=== PATIENT | female | born 1965 | race Two or more races ===

== ENCOUNTER 2020-11-21 18:51 | Emergency (ER) | payer MEDICAID, OTHER ==
[~2020-11-21] VITALS: Ht 167.6 cm; Wt 81.6 kg
[2020-11-21 20:06] LABS: Basophils # (auto) 0 10 ^3/uL (0-0.2); Basophils % (auto) 0.3 % (0.0-2.0); Eosinophils # (auto) 0.1 10 ^3/uL (0-0.8); Hematocrit 43.9 % (36.0-46.0); Hemoglobin 15.1 g/dL (12.2-16.2); Lymphocytes # (auto) 2.1 10 ^3/uL (0.4-5.4); Lymphocytes % (auto) 23.1 % (10.0-50.0); Mean Corpuscular Hemoglobin 28.9 pg (28.0-32.0); Mean Corpuscular Hgb Conc. 34.4 g/dL (32.0-36.0); Monocytes # (auto) 0.5 10 ^3/uL (0-1.3); Neutrophils # (auto) 6.3 10 ^3/uL (1.6-8.6); Neutrophils % (auto) 69.6 % (37.0-80.0); Nucleated Red Blood Cells % 0.2 %; Red Blood Cells 5.22 10^6/uL (4.0-5.20); Red Cell Distribution Width 14.5 % (11.8-14.3)
[2020-11-21 20:24] LABS: Alanine Aminotransferase 26 U/L (13-56); Albumin 3.8 g/dL (3.4-5.0); Anion Gap 6 (5-15); Aspartate Aminotransferase 17 U/L (15-37); BUN/Creatinine Ratio 17.9; Blood Urea Nitrogen 15 mg/dL (7-18); Calcium 8.9 mg/dL (8.5-10.1); Carbon Dioxide 26 mmol/L (21-32); Chloride 111 mmol/L (98-107); GFR African American 90 mL/min; GFR Non-African American 75 mL/min; Glucose 94 mg/dL (74-106); Magnesium 2.2 mg/dL (1.6-2.6); Potassium 3.5 mmol/L (3.5-5.1); Sodium 143 mmol/L (136-145)
[2020-11-21 20:29] LABS: Alkaline Phosphatase 115 U/L (45-117); Bilirubin, Total 0.9 mg/dL (0.2-1.0); Total Protein 8.4 g/dL (6.4-8.2)
[2020-11-21] MEDS ORDERED: LABETALOL HCL 5 MG/ML 4ML SYRINGE IV ONE (21:00)
[2020-11-21] MEDS ORDERED: LABETALOL HCL 200 MG TAB PO ONE (22:30)
[2020-11-22 02:49] VITALS: BP 118/81
== END 2020-11-22 02:55 | disposition home or self-care (01) ==
LOC: ER 18:51 → EDBD 18:51 → ER 11-22 02:55
DX: H81.399 Other peripheral vertigo, unspecified ear (principal); Z20.822 Contact with and (suspected) exposure to COVID-19
CPT/HCPCS: 36415; 70450; 80053; 83735; 84484; 85025; 87426; 93005; 96374; 99285; J3490

== ENCOUNTER 2022-02-10 15:46 | Emergency (ER) | payer MEDICAID ==
[~2022-02-10] VITALS: Ht 167.6 cm; Wt 78.3 kg
[2022-02-10 16:21] VITALS: BP 146/87
[2022-02-10 18:59] LABS: Albumin 4.3 g/dL (3.4-5.0); Calcium 9.9 mg/dL (8.5-10.1); Potassium 3.7 mmol/L (3.5-5.1)
[2022-02-10 19:03] LABS: BUN/Creatinine Ratio 10.8; Bilirubin, Total 1.8 mg/dL (0.2-1.0)
[2022-02-10 19:56] LABS: Basophils # (auto) 0 10 ^3/uL (0-0.2); Basophils % (auto) 0.3 % (0.0-2.0); Eosinophils # (auto) 0.1 10 ^3/uL (0-0.8); Eosinophils % (auto) 0.8 % (0.0-7.0); Hematocrit 46.3 % (36.0-46.0); Hemoglobin 15.1 g/dL (12.2-16.2); Lymphocytes % (auto) 20.5 % (10.0-50.0); Mean Corpuscular Hgb Conc. 32.7 g/dL (32.0-36.0); Mean Corpuscular Volume 82.6 fL (80.0-100.0); Monocytes # (auto) 0.5 10 ^3/uL (0-1.3); Monocytes % (auto) 5.3 % (0.0-12.0); Neutrophils # (auto) 7.1 10 ^3/uL (1.6-8.6); Neutrophils % (auto) 73.1 % (37.0-80.0); Red Cell Distribution Width 14.8 % (11.8-14.3); White Blood Cell 9.7 10^3/uL (4.4-10.8)
[2022-02-10] MEDS ORDERED: IBUPROFEN 600 MG TAB PO ONE (23:00)
[2022-02-10] MEDS ORDERED: cloNIDine HCL 0.1 MG TAB PO ONE (23:00)
== END 2022-02-10 16:00 | disposition left against medical advice (07) ==
LOC: ER 15:46
DX: I10 Essential (primary) hypertension (principal); R07.89 Other chest pain; M79.10 Myalgia, unspecified site; Z53.29 Procedure and treatment not carried out because of patient's decision for other reasons
CPT/HCPCS: 36415; 80053; 84484; 85025; 93005

== ENCOUNTER 2024-04-23 15:33 | Inpatient (IN) | payer MEDICAID ==
[~2024-04-23] VITALS: Ht 167.6 cm; Wt 82.3 kg
[2024-04-23 16:04] LABS: Basophils # (auto) 0 10 ^3/uL (0-0.2); Basophils % (auto) 0.2 % (0.0-2.0); Eosinophils # (auto) 0.1 10 ^3/uL (0-0.8); Eosinophils % (auto) 1.3 % (0.0-7.0); Hematocrit 43.9 % (36.0-46.0); Hemoglobin 15.5 g/dL (12.2-16.2); Lymphocytes % (auto) 28.2 % (10.0-50.0); Mean Corpuscular Hemoglobin 29.6 pg (28.0-32.0); Mean Corpuscular Hgb Conc. 35.2 g/dL (32.0-36.0); Mean Corpuscular Volume 84.1 fL (80.0-100.0); Monocytes # (auto) 0.4 10 ^3/uL (0-1.3); Monocytes % (auto) 6.2 % (0.0-12.0); Neutrophils # (auto) 4.5 10 ^3/uL (1.6-8.6); Neutrophils % (auto) 64.1 % (37.0-80.0); Nucleated Red Blood Cells % 0.1 %; Platelet Count (auto) 196 10^3/uL (140-450); Red Blood Cells 5.22 10^6/uL (4.0-5.20); Red Cell Distribution Width 13.9 % (11.8-14.3)
[2024-04-23 16:17] LABS: Alanine Aminotransferase 15 U/L (7-40); Albumin 4.9 g/dL (3.2-4.8); Alkaline Phosphatase 99 U/L (46-116); Anion Gap 7 (5-15); Aspartate Aminotransferase 13 U/L (13-40); BUN/Creatinine Ratio 12.3 (10.0-20.0); Bilirubin, Total 1.7 mg/dL (0.2-1.0); Blood Urea Nitrogen 13 mg/dL (9-23); Calcium 10.3 mg/dL (8.7-10.4); Carbon Dioxide 24 mmol/L (20-31); Chloride 109 mmol/L (98-107); Glucose 101 mg/dL (74-106); Potassium 3.8 mmol/L (3.5-5.1); Sodium 140 mmol/L (136-145); Total Protein 8.1 g/dL (5.7-8.2)
[2024-04-23 16:20] LABS: INR 1.03 (0.9-1.15); Partial Thromboplastin Time 27.9 SEC (24.5-34.5); Prothrombin Time 10.9 sec (9.3-11.8)
--- NOTE | 2024-04-23 18:17 | DVH ---
EXAM: CT HEAD WITHOUT CONTRAST INDICATION: visual disturbance TECHNIQUE: CT of the head without intravenous contrast. Radiation Dose Information: CT Dose: CTDI volume is 25 mGy. Dose-length product is 259 mGy*cm The dose indicators for CT are the volume Computed Tomography (CT) Dose Index (CTDIvol) and the Dose Length Product (DLP), and are measured in units of mGy and mGy-cm, respectively. These indicators are not patient dose, but values generated from the CT scanner acquisition factors. The report includes radiation exposure data for exposures received during this examination. COMPARISON: HEAD WITHOUT CONTRAST on DOS: 11/21/20 FINDINGS: There is no evidence of acute intracranial hemorrhage, extra-axial collection, mass effect, midline s hift, herniation or hydrocephalus. The ventricles, sulci and cisterns are age appropriate. The reina-white differentiation is intact. Patchy periventricular and subcortical white matter hypoattenuation is nonspecific but may be related to small vessel ischemic disease. The visualized paranasal sinuses and mastoid air cells are clear. The surrounding soft tissues and osseous structures are unremarkable. IMPRESSION: No acute intracranial abnormality.
--- NOTE | 2024-04-23 18:27 | ED.PDOC ---
Eye-HPI HPI Comments 59 y.o female with PMH of HTN, arrhythmias, and hyperlipidemia, presents to the ED for an evaluation of vision change. Patient reports over the last several days she has had more frequent episodes of intermittent palpitations. She is currently being followed at [place] by a cooling tower technician and entry analyst, however does not have a definitive diagnosis. She states today she was out running errands around 1500 when she noticed a "vertical black string/line" appear in her right eye visual field, described as the appearance of strands of hair obscuring her vision. Patient drove to the ED but upon arrival her symptoms subsided. Patient states while awaiting in the lobby, she had intermittent episodes where that "black strand" appears with no specific precipitating factors. Currently she states her vision is normal. She is cu rrently experiencing palpitations, however denies chest pain. Patient denies any eye pain, discharge, headaches, slurred speech, facial droops, numbness, or eye trauma. Chief Complaint: Eye Problem Time Seen by MD: 18:04 Primary Care Provider: DANNIE Vivas Notes: Nurses Notes, Medications, Allergies Allergies: Coded Allergies: NO KNOWN ALLERGIES (Unverified , 11/21/20) Information Source: Patient Mode of Arrival: Ambulatory Timing: Hours Duration: Intermittent Eye Location: Right Onset: Spontaneous History of: None Associated signs and symptoms: Other Past Medical History PAST MEDICAL HISTORY: High Lipids, HTN Past Medical History (Other): Ascending aortic aneurysm, arrhythmia Surgical History: Denies all surgeries HARBOR PILOT History: No Pertinent HARBOR PILOT History Family History Family History: Reviewed,noncontributory to illness, Family hx of stroke Social History Smoker: Non-Smoker Alcohol: Denies ETOH Use Drugs: Denies Drug Use Lives In: Home Constitutional: denies: chills, diaphoresis, fatigue, fever, malaise, sweats, weakness, others EENTM: reports: others (right eye vision change: black strands ); denies: blurred vision, double vision, ear bleeding, ear discharge, ear drainage, ear pain, ear ringing, eye pain, eye redness, hearing loss, mouth pain, mouth swelling, nasal discharge, nose bleeding, nose congestion, nose pain, photophobia, tearing, throat pain, throat swelling, voice changes Respiratory: denies: cough, hemoptysis, orthopnea, SOB at rest, shortness of breath, SOB with excertion, stridor, wheezing, others Cardiovascular: denies: chest pain, dizzy spells, diaphoresis, Dyspnea on exertion, edema, irregular heart beat, left arm pain, lightheadedness, palpitations, PND, syncope, others Gastrointestinal: denies: abdomen distended, abdominal pain, blood streaked bowels, constipated, diarrhea, dysphagia, difficulty swallowing, hematemesis, melena, nausea, poor appetite, poor fluid intake, rectal bleeding, rectal pain, vomiting, others Genitourinary: denies: abnormal vagina bleeding, burning, dyspareunia, dysuria, flank pain, frequency, hematuria, incontinence, pain, , vagina discharge, urgency, others Neurological: denies: dizziness, fainting, headache, left sided numbness, left sided weakness, numbness, paresthesia, pre-existing deficit, right sided numbness, right sided weakness, seizure, speech problems, tingling, tremors, weakness, others Musculoskeletal: denies: back pain, gout, joint pain, joint swelling, muscle pain, muscle stiffness, neck pain, others Integumetry: denies: bruises, change in color, change in hair/nails, dryness, laceration, lesions, lumps, rash, wounds, others Allergic/Immunocompromised: denies: Difficulty Healing, Frequent Infections, Hives, Itching, others Hematologic/Lymphatic: denies: anemia, blood clots, easy bleeding, easy bruising, swollen glands, others Endocrine: denies: excessive hunger, excessive sweating, excessive thirst, excessive urination, flushing, intolerance to cold, intolerance to heat, unexplained weight gain, unexplained weight loss, others Psychiatric: denies: anxiety, bipolar disorder, depression, hopeless, panic disorder, schizophrenia, sleepless, suicidal, others All Other Systems: Reviewed and Negative Physical Exam General Appearance: No Apparent Distress HEENT: Normal ENT Inspection, PERRL/EOMI Neck: Full Range of Motion, Normal Inspection Respiratory: Lungs Clear, No Accessory Muscle Use, No Respiratory Distress, Normal Breath Sounds Cardiovascular: Irregular, No Edema, No JVD Breast Exam: Deferred Gastrointestinal: Non Tender, Soft Genitalia: Deferred Pelvic: Deferred Rectal: Deferred Extremities: Normal inspection, Normal range of motion, Non-tender, No pedal edema Neurologic: Alert, cribber II-XII nml as Tested, No Motor Deficits, Normal Affect, Normal Mood, No Sensory Deficits Cerebellar Function: NOT DONE Reflexes: NOT DONE Skin: Dry, Normal Color, Warm Lymphatic: NOT DONE Was a procedure done? Was a procedure done?: No EKG EKG : Comments Sinus rhythm, rate 58, normal intervals, normal axis, normal QRS complex, nonspecific T changes. No prior EKG available for comparison. EENT DIFF Eye: Retinal Vein Occlusion, Other (We will detachment, other retinopathy, ocular migraine, CVA, TIA, among others) X-Ray, Labs, Meds, VS Vital Signs Date Time Temp Pulse Resp B/P (MAP) Pulse Ox O2 Delivery O2 Flow Rate FiO2 04/23/24 19:54 Room Air* 0 21 04/23/24 19:09 16 97 Room Air* 0 21 04/23/24 19:07 97.9 66 16 139/69 (92) 97 97.9 04/23/24 15:52 98.3 65 18 154/96 (115) 98 04/23/24 15:40 58 Lab Test 04/23/24 15:48 Range/Units White Blood Count 7.0 4.4-10.8 10^3/uL Red Blood Count 5.22 H 4.0-5.20 10^6/uL Hemoglobin 15.5 12.2-16.2 g/dL Hematocrit 43.9 36.0-46.0 % Mean Corpuscular Volume 84.1 80.0-100.0 fL Mean Corpuscular Hemoglobin 29.6 28.0-32.0 pg Mean Corpuscular Hemoglobin Concent 35.2 32.0-36.0 g/dL Red Cell Distribution Width 13.9 11.8-14.3 % Platelet Count 196 140-450 10^3/uL Mean Platelet Volume 9.1 6.9-10.8 fL Neutrophils (%) (Auto) 64.1 37.0-80.0 % Lymphocytes (%) (Auto) 28.2 10.0-50.0 % Monocytes (%) (Auto) 6.2 0.0-12.0 % Eosinophils (%) (Auto) 1.3 0.0-7.0 % Basophils (%) (Auto) 0.2 0.0-2.0 % Neutrophils # (Auto) 4.5 1.6-8.6 10 ^3/uL Lymphocytes # (Auto) 2.0 0.4-5.4 10 ^3/uL Monocytes # (Auto) 0.4 0-1.3 10 ^3/uL Eosinophils # (Auto) 0.1 0-0.8 10 ^3/uL Basophils # (Auto) 0 0-0.2 10 ^3/uL Nucleated Red Blood Cells 0.1 % Prothrombin Time 10.9 9.3-11.8 sec Prothrombin Time INR 1.03 0.9-1.15 Activated Partial Thromboplast Time 27.9 24.5-34.5 SEC Sodium Level 140 136-145 mmol/L Potassium Level 3.8 3.5-5.1 mmol/L Chloride Level 109 H 98-107 mmol/L Carbon Dioxide Level 24 20-31 mmol/L Anion Gap 7 5-15 Blood Urea Nitrogen 13 9-23 mg/dL Creatinine 1.06 H 0.550-1.02 mg/dL Glomerular Filtration Rate Calc 60 >90 mL/min BUN/Creatinine Ratio 12.3 10.0-20.0 Serum Glucose 101 74-106 mg/dL Calcium Level 10.3 8.7-10.4 mg/dL Total Bilirubin 1.7 H 0.2-1.0 mg/dL Aspartate Amino Transferase (AST) 13 13-40 U/L Alanine Aminotransferase (ALT) 15 7-40 U/L Alkaline Phosphatase 99 46-116 U/L Troponin I High Sensitivity < 3 L </=34 ng/L Total Protein 8.1 5.7-8.2 g/dL Albumin 4.9 H 3.2-4.8 g/dL Current Medications Medications (Trade) Dose Ordered Sig/Ekta Route Start Time Stop Time Status Last Admin Docusate Sodium (Colace Capsule) 100 mg ONCE ONCE PO 04/23/24 21:30 04/23/24 21:31 DC 04/23/24 21:58 EXAM: CT HEAD WITHOUT CONTRAST INDICATION: visual disturbance TECHNIQUE: CT of the head without intravenous contrast. Radiation Dose Information: CT Dose: CTDI volume is 25 mGy. Dose-length product is 259 mGy*cm The dose indicators for CT are the volume Computed Tomography (CT) Dose Index (CTDIvol) and the Dose Length Product (DLP), and are measured in units of mGy and mGy-cm, respectively. These indicators are not patient dose, but values generated from the CT scanner acquisition factors. The report includes radiation exposure data for exposures received during this examination. COMPARISON: HEAD WITHOUT CONTRAST on DOS: 11/21/20 FINDINGS: There is no evidence of acute intracranial hemorrhage, extra-axial collection, mass effect, midline shift, herniation or hydrocephalus. The ventricles, sulci and cisterns are age appropriate. The reina-white differentiation is intact. Patchy periventricular and subcortical white matter hypoattenuation is nonspecific but may be related to small vessel ischemic disease. The visualized paranasal sinuses and mastoid air cells are clear. The surrounding soft tissues and osseous structures are unremarkable. IMPRESSION: No acute intracranial abnormality. X-Ray, Labs, Meds, VS Comment 59-year-old female with a history of hypertension, hyperlipidemia and ascending aortic aneurysm, complaining of transient right eye vision changes. Vitals remarkable for heart rate 58, BP 154/96 Exam remarkable for irregular heart rhythm Head CT unremarkable CBC, CMP, troponin and coag panel unremarkable for any abnormality of acute significance On re-evaluation, patient was not having any vision changes. She did experience tachycardia up to 118, then bradycardia down to 58 while at rest. She did not appear anxious or uncomfortable during the episodes of tachycardia or bradycardia. Head CT is negative, however I am concerned for possible episodes of bradycardia causing transient brain ischemia resulting in vision changes. Plan is to admit the patient for brain MRI and Neurology/cardiology evaluation. Time of 1ST Reevaluation: 18:19 Reevaluation 1ST: Unchanged Time of 2ND Reevaluation: 19:04 Reevaluation 2ND: Unchanged Patient Education/Counseling: Diagnosis, Treatment, Prognosis Family Education/Counseling: No Family Present Departure 1 Departure Time of Disposition: 19:05 Impression: Primary Impression: Visual disturbance Additional Impressions: Transient ischemic attack Palpitations Disposition: ADMITTED INPATIENT Admit to: Tele Condition: Guarded Critical Care Note Critical Care Time?: No Stability Stability form required: No I personally scribed for KIANA HALL MD ([facility]) on 04/23/24 at 18:27. Electronically submitted by Марина Boyce ([facility]). I personally scribed for KIANA HALL MD ([facility]) on 04/23/24 at 18:56. Electronically submitted by Марина Boyce ([facility]). KIANA HALL MD Apr 23, 2024 18:27
[2024-04-23 19:09] VITALS: RESP 16; O2SAT 97
[2024-04-23] MEDS: DOCUSATE SOD 100 MG CAP PO ONE (21:58)
[2024-04-23] MEDS ORDERED: DOCUSATE SOD 100 MG CAP PO PRN (22:45)
[2024-04-23] MEDS ORDERED: ONDANSETRON HCL 4 MG/2 ML VIAL IV PRN (22:45)
[2024-04-23] MEDS ORDERED: hydrALAZINE HCL 20 MG/ML VL IV PRN (22:45)
[2024-04-23] MEDS ORDERED: ACETAMINOPHEN 325 MG TAB PO PRN (22:45)
[2024-04-23] MEDS ORDERED: HYDROcodone-ACET 5/325MG TAB PO PRN (22:45)
--- NOTE | 2024-04-23 23:19 | DVHHP2 ---
History of Present Illness Reason for Visit: Palpitations History of Present Illness The patient is a 59 years old female past medical history of hyperlipidemia, hypertension, ascending aortic aneurysm, and arrhythmia who presented to [facility] ED with complaint of right visual disturbance. Patient reports over the last several days she has had more frequent episodes of intermittent palpitations. She is currently being followed at [place] by a quality nurse and radio officer, however does not have a definitive diagnosis. She states today she was out running errands around 1500 when she noticed a "vertical black string/line" appear in her right eye visual field, described as the appearance of strands of hair obscuring her vision. Patient was seen and evaluated in the ED, laboratory data shows WBC 7.0, platelets 196, sodium 140, potassium 3.8, BUN 13, creatinine 1.06, total bilirubin 1.7, glucose 101, troponin 3, blood pressure 139/69, pulse 66, temperature 97.9 F, O2 saturation 97% room air. Head CT showed no acute intracranial abnormality. Please see medication orders section in the computer. On my assessment, patient denied chest pain, no headache, no dizziness, no diaphoresis, no palpitations at this moment, no shortness of breath, no nausea, no vomiting, no fever, no chills. Patient was admitted for further evaluation and medical management. Past Medical History High Lipids, HTN, Ascending aortic aneurysm, arrhythmia Past Surgical History Denies all surgeries Family History Reviewed, noncontributory to the management of this case. Past Social History The patient lives at home, denies smoking, alcohol or illicit drugs abuse. Review of Systems Constitutional: No: Fever, Chills, Sweats, Weakness, Malaise, Other Eyes: Vision change (Right eye); No: Pain, Conjunctivae inflammation, Eyelid inflammation, Other, Redness ENT: No: Ear pain, Ear discharge, Nose pain, Nose discharge, Nose congestion, Mouth pain, Mouth swelling, Throat pain, Throat swelling, Other Respiratory: No: Cough, Dry, Shortness of breath, SOB with excertion, Wheezing, Hemoptysis, Pleuritic Pain, Sputum, Wheezing, Other Cardiovascular: Palpitations; No: Chest Pain, Orthopnea, Paroxysmal Noc. Dyspnea, Edema, Lt Headedness, Other Gastrointestinal: No: Nausea, Vomiting, Abdominal Pain, Diarrhea, Constipation, Melena, Hematochezia, Other Genitourinary: No Dysuria, No Frequency, No Incontinence, No Hematuria, No Retention, No Other Musculoskeletal: No: other, neck pain, shoulder pain, arm pain, back pain, hand pain, leg pain, foot pain Skin: No: Rash, Lesions, Jaundice, Bruising, Other Neurological: No: Weakness, Numbness, Incoordination, Change in speech, Confusion, Seizures, Other Allergies: Coded Allergies: NO KNOWN ALLERGIES (Unverified , 11/21/20) Medications Current Medications Medications Dose Ordered Sig/Ekta Route Start Time Stop Time Status Last Admin Dose Admin Atorvastatin Calcium 20 mg HS PO 04/24/24 22:00 Hydralazine HCl 10 mg Q6HP PRN IV 04/23/24 22:45 Sodium Chloride 10 ml Q8HR IV 04/24/24 06:00 Acetaminophen/ Hydrocodone Bitart 1 tab Q4HP PRN PO 04/23/24 22:45 Ondansetron HCl 4 mg Q4HP PRN IV 04/23/24 22:45 Docusate Sodium 100 mg BIDPRN PRN PO 04/23/24 22:45 Acetaminophen 650 mg Q6HP PRN PO 04/23/24 22:45 Exam Vital Signs Vital Signs Date Time Temp Pulse Resp B/P (MAP) Pulse Ox O2 Delivery O2 Flow Rate FiO2 04/23/24 19:54 Room Air* 0 21 04/23/24 19:09 16 97 04/23/24 19:07 97.9 66 139/69 (92) 97.9 General Appearance: Alert, Oriented X3, Cooperative, No acute distress HEENT: Atraumatic, PERRLA, EOMI, Mucous membr. moist/pink Respiratory: Clear to auscultation, Normal air movement Cardiovascular: Regular rate, Normal S1, Normal S2, No murmurs Abdominal: Normal bowel sounds, Soft, No tenderness, No hepatospenomegaly, No masses Extremities: No clubbing, No cyanosis, No edema, Normal pulses, No tenderness/swelling Skin: No rashes, No breakdown, No significant lesion Neuro: Normal gait, Normal speech, Strength at 5/5 X4 ext, Normal tone, Sensation intact, Cranial nerves 3-12 NL, Reflexes 2+ Psych/Mental Status: Mental status NL, Mood NL Labs/Xrays Labs Test 04/23/24 15:48 Range/Units White Blood Count 7.0 4.4-10.8 10^3/uL Red Blood Count 5.22 H 4.0-5.20 10^6/uL Hemoglobin 15.5 12.2-16.2 g/dL Hematocrit 43.9 36.0-46.0 % Mean Corpuscular Volume 84.1 80.0-100.0 fL Mean Corpuscular Hemoglobin 29.6 28.0-32.0 pg Mean Corpuscular Hemoglobin Concent 35.2 32.0-36.0 g/dL Red Cell Distribution Width 13.9 11.8-14.3 % Platelet Count 196 140-450 10^3/uL Mean Platelet Volume 9.1 6.9-10.8 fL Neutrophils (%) (Auto) 64.1 37.0-80.0 % Lymphocytes (%) (Auto) 28.2 10.0-50.0 % Monocytes (%) (Auto) 6.2 0.0-12.0 % Eosinophils (%) (Auto) 1.3 0.0-7.0 % Basophils (%) (Auto) 0.2 0.0-2.0 % Neutrophils # (Auto) 4.5 1.6-8.6 10 ^3/uL Lymphocytes # (Auto) 2.0 0.4-5.4 10 ^3/uL Monocytes # (Auto) 0.4 0-1.3 10 ^3/uL Eosinophils # (Auto) 0.1 0-0.8 10 ^3/uL Basophils # (Auto) 0 0-0.2 10 ^3/uL Nucleated Red Blood Cells 0.1 % Prothrombin Time 10.9 9.3-11.8 sec Prothrombin Time INR 1.03 0.9-1.15 Activated Partial Thromboplast Time 27.9 24.5-34.5 SEC Sodium Level 140 136-145 mmol/L Potassium Level 3.8 3.5-5.1 mmol/L Chloride Level 109 H 98-107 mmol/L Carbon Dioxide Level 24 20-31 mmol/L Anion Gap 7 5-15 Blood Urea Nitrogen 13 9-23 mg/dL Creatinine 1.06 H 0.550-1.02 mg/dL Glomerular Filtration Rate Calc 60 >90 mL/min BUN/Creatinine Ratio 12.3 10.0-20.0 Serum Glucose 101 74-106 mg/dL Calcium Level 10.3 8.7-10.4 mg/dL Total Bilirubin 1.7 H 0.2-1.0 mg/dL Aspartate Amino Transferase (AST) 13 13-40 U/L Alanine Aminotransferase (ALT) 15 7-40 U/L Alkaline Phosphatase 99 46-116 U/L Troponin I High Sensitivity < 3 L </=34 ng/L Total Protein 8.1 5.7-8.2 g/dL Albumin 4.9 H 3.2-4.8 g/dL PATIENT: NIRMAL PA ACCT: [id number] UNIT: [id number] : 1965 LOC: ER ROOM / BED: / AGE / SEX: 59 / F ADM STATUS: REG ER SERVICE [id number] ORDERING PHYSICIAN: KIANA HALL MD PROCEDURE(s): HWOCT - HEAD WITHOUT CONTRAST REASON: visual disturbance ORDER NUMBER(s): [id number], ACCESSION NUMBER(s): [id number] EXAM: CT HEAD WITHOUT CONTRAST INDICATION: visual disturbance TECHNIQUE: CT of the head without intravenous contrast. Radiation Dose Information: CT Dose: CTDI volume is 25 mGy. Dose-length product is 259 mGy*cm The dose indicators for CT are the volume Computed Tomography (CT) Dose Index (CTDIvol) and the Dose Length Product (DLP), and are measured in units of mGy and mGy-cm, respectively. These indicators are not patient dose, but values generated from the CT scanner acquisition factors. The report includes radiation exposure data for exposures received during this examination. COMPARISON: HEAD WITHOUT CONTRAST on DOS: 11/21/20 FINDINGS: There is no evidence of acute intracranial hemorrhage, extra-axial collection, mass effect, midline shift, herniation or hydrocephalus. The ventricles, sulci and cisterns are age appropriate. The reina-white differentiation is intact. Patchy periventricular and subcortical white matter hypoattenuation is nonspecific but may be related to small vessel ischemic disease. The visualized paranasal sinuses and mastoid air cells are clear. The surrounding soft tissues and osseous structures are unremarkable. IMPRESSION: No acute intracranial abnormality. Assessment/Plan Assessment/Plan Palpitations Visual disturbance Transient ischemic attack Plan 1. Admit to telemetry unit 2. Breathing treatment 3. Pain control management 4. Management of fluids and electrolytes 5. Consultation for hospitalist 6. Diagnostic tests head CT 7. DVT prophylaxis-on SCDs 8. Repeat labs CBC, CMP in a.m. 9. Continue with current medical management 10. Treatment plan discussed with patient and RN. Patient verbalized understanding. Plan discussed with: Patient, Other (RN) My Orders Orders - YAEL LOO DNP Procedure Category Date Status Time Atorvastatin (Lipitor) PHA 04/24/24 In Process 22:00 Hydralazine Injection PHA 04/23/24 In Process (Apresoline Inject 22:45 Allergies AVRIL 04/23/24 In Process 22:35 Code Status CODE 04/23/24 Transmitted 22:35 Sodium Chloride Lock PHA 04/24/24 In Process (Saline Lock Ns) 06:00 Oxygen Per Hour RT 04/23/24 Transmitted 22:35 Hydrocodone-Acet PHA 04/23/24 In Process 5/325mg Tab ([place] 22:45 Ondansetron Hcl PHA 04/23/24 In Process (Zofran) 22:45 Docusate Sodium PHA 04/23/24 In Process Capsule (Colace 22:45 Complete Blood Count LAB 04/24/24 Verified 04:00 Comprehensive LAB 04/24/24 Verified Metabolic Panel 04:00 Cardiac DIET 04/24/24 Transmitted Diet-2gna,Lofat,Lochol Breakfast Condition: Serious AVRIL 04/23/24 In Process 22:35 Acetaminophen Tablet PHA 04/23/24 In Process (Tylenol Tablet) 22:45 Bedrest With Bathroom AVRIL 04/23/24 In Process Privileg 22:35 Sequential AVRIL 04/23/24 In Process Compression Device Problem List: (1) Palpitations (2) Visual disturbance (3) Transient ischemic attack Date of Service: Apr 23, 2024 Billing Provider: YAEL LOO DNP Common Visit Codes: [id number] INP/OBS CARE (HIGH) YAEL LOO DNP Apr 23, 2024 23:19
[2024-04-23] MEDS ORDERED: NITROGLYCERIN 0.4 MG SL TAB SL PRN (23:30)
[2024-04-23] MEDS ORDERED: MORPHINE SULFATE INJ 2 MG/ml SYRG IV PRN (23:30)
[2024-04-24] VITALS (10 sets, daily range): BP systolic 101–130; BP diastolic 60–77; PULSE 53–92; RESP 16–20; TEMP 97.5–98.3; O2SAT 92–96
[2024-04-24] MEDS: SODIUM CHLOR 0.9% PF (SALINE LOCK) 10ML VIAL/SYR IV SCH (06:00)
[2024-04-24 10:46] LABS: Basophils # (auto) 0 10 ^3/uL (0-0.2); Basophils % (auto) 0.3 % (0.0-2.0); Eosinophils # (auto) 0.1 10 ^3/uL (0-0.8); Eosinophils % (auto) 1.4 % (0.0-7.0); Hematocrit 39.4 % (36.0-46.0); Hemoglobin 13.9 g/dL (12.2-16.2); Lymphocytes # (auto) 1.3 10 ^3/uL (0.4-5.4); Lymphocytes % (auto) 20.7 % (10.0-50.0); Mean Corpuscular Hemoglobin 29.3 pg (28.0-32.0); Mean Corpuscular Hgb Conc. 35.3 g/dL (32.0-36.0); Mean Corpuscular Volume 83.2 fL (80.0-100.0); Monocytes # (auto) 0.4 10 ^3/uL (0-1.3); Monocytes % (auto) 6.7 % (0.0-12.0); Neutrophils # (auto) 4.4 10 ^3/uL (1.6-8.6); Neutrophils % (auto) 70.9 % (37.0-80.0); Platelet Count (auto) 176 10^3/uL (140-450); Red Blood Cells 4.73 10^6/uL (4.0-5.20); Red Cell Distribution Width 14.2 % (11.8-14.3); White Blood Cell 6.2 10^3/uL (4.4-10.8)
[2024-04-24 11:05] LABS: Alanine Aminotransferase 15 U/L (7-40); Albumin 4.2 g/dL (3.2-4.8); Alkaline Phosphatase 85 U/L (46-116); Anion Gap 5 (5-15); Aspartate Aminotransferase 10 U/L (13-40); BUN/Creatinine Ratio 16.3 (10.0-20.0); Bilirubin, Total 2.1 mg/dL (0.2-1.0); Blood Urea Nitrogen 16 mg/dL (9-23); Calcium 9.9 mg/dL (8.7-10.4); Carbon Dioxide 29 mmol/L (20-31); Chloride 109 mmol/L (98-107); Glucose 137 mg/dL (74-106); Potassium 3.7 mmol/L (3.5-5.1); Sodium 143 mmol/L (136-145); Total Protein 7.3 g/dL (5.7-8.2)
[2024-04-24] MEDS ORDERED: IOHEXOL 350 MG/ML 100ML IJ ONE (13:50)
[2024-04-24 15:19] LABS: Bilirubin, Direct 0.5 mg/dL (<0.3)
[2024-04-24 15:27] LABS: CRP High Sensitivity 0.91 mg/dL (<1.0)
[2024-04-24 16:32] LABS: Erythrocyte Sedimentation Rate 17 mm/hr (0-20)
[2024-04-24] MEDS: ASPirin 81 mg TAB PO ONE (17:12)
[2024-04-24] MEDS: ATORVASTATIN 20 MG TAB PO SCH (17:12)
--- NOTE | 2024-04-24 19:04 | DVH ---
EXAM: CT ANGIO HEAD/NECK CLINICAL HISTORY: SUDDEN LOSS OF VISION TECHNIQUE: CT angiogram of the head and neck was performed without and with intravenous contrast. 100 ml of omnipaque 350 was administered intravenously. 3D MIP reconstructed images were created and arc hived on the PACS system. This exam was performed according to our departmental dose optimization pro gram. Up-to-date CT equipment and radiation dose reduction techniques are utilized as appropriate. COMPARISON: CT head from 04/23/2020 FINDINGS: CTA head: The ventricles and subarachnoid spaces are normal in size and configuration. The reina white matter in terfaces are maintained There is no midline shift or mass effect. There is no evidence of acute intra cranial hemorrhage. The basal cisterns are patent. The calvarium is intact. The distal internal carotid, vertebral, and basilar arteries are patent without focal narrowing or oc clusion. The anterior, middle, and posterior cerebral arteries are patent without focal narrowing. No aneurysm or arteriovenous malformation is identified. CTA neck: Common origin of the left common carotid and right brachiocephalic arteries , normal variant. The aor tic arch vessel origins are widely patent. Mild calcified plaque in the right carotid bifurcation . T he common carotid and cervical portions of the internal carotid and vertebral arteries are patent wit hout focal narrowing according to NASCET criteria. No aneurysm, AVM, or dissection is identified. The cervical soft tissues are unremarkable. The paranasal sinus and mastoid air cells are clear. Mild biapical pleural-parenchymal scarring. Multilevel cervical spondylosis. There is a dental ammy with in the 1st right maxillary molar. IMPRESSION: 1. Widely patent arteries in the head and neck without large vessel occlusion, significant stenosis, dissection, aneurysm, or AVM. 2. Dental ammy within the 1st right maxillary molar. 3. No acute intracranial abnormality.
--- NOTE | 2024-04-24 19:08 | DVHPNRES ---
Progress Note Date Seen: Apr 24, 2024 Resident Creating Document: KATALINA BANGURA RESIDENT Has the PT tested + for MRSA If YES, has PT been informed?: No Medical Necessity Reason Pt with a Central, PICC or Fol: No Subjective Review of Systems Reviewed the patient's bedside several times along with the RN. The patient is anxious, vision improved, intermittent headache, otherwise hemodynamically stable. Expressed wish to follow with higher level of care for ophthalmology evaluation. Patient reports: No new complaints Changes from previous H/P or p: No Changes Review of Systems: HEENT:Abnormal (Mild tension-like headache), CVS:Abnormal (Intermittent palpitation, denies any known history of AFib), RESPIRATORY:Normal, GI:Normal, :Normal, MSK:Normal, NEURO:Abnormal (Right eye visual disturbances) Objective vital signs Vital Sign Date Time Temp Pulse Resp B/P (MAP) Pulse Ox O2 Delivery O2 Flow Rate FiO2 04/24/24 17:00 98.2 71 20 117/77 (90) 94 98.2 04/24/24 08:00 Room Air* 0 21 Total Intake and Output 04/23/24 04/23/24 04/24/24 15:00 23:00 07:00 Intake Total 200 ml Balance 200 ml medications Current Medications Medications Dose Ordered Sig/Ekta Route Start Time Stop Time Status Last Admin Dose Admin Hydralazine HCl 10 mg Q6HP PRN IV 04/23/24 22:45 Sodium Chloride 10 ml Q8HR IV 04/24/24 06:00 04/24/24 13:35 10 ML Acetaminophen/ Hydrocodone Bitart 1 tab Q4HP PRN PO 04/23/24 22:45 Ondansetron HCl 4 mg Q4HP PRN IV 04/23/24 22:45 Docusate Sodium 100 mg BIDPRN PRN PO 04/23/24 22:45 Acetaminophen 650 mg Q6HP PRN PO 04/23/24 22:45 Nitroglycerin 0.4 mg Q5MINP PRN SL 04/23/24 23:30 Morphine Sulfate 2 mg Q30M PRN IV 04/23/24 23:30 Atorvastatin Calcium 80 mg HS PO 04/24/24 13:30 04/24/24 17:12 80 MG Aspirin 81 mg DAILY PO 04/25/24 10:00 Examination: GENERAL:Abnormal (In mild distress, anxious), HEENT:Normal, NECK:Normal, LUNGS:Normal, CVS:Normal, ABDOMEN:Normal, MSK:Normal, SKIN:Normal, NEURO:Abnormal (AAO x4, memory intact, overall gross strength 5/5 upper and lower extremity, sensory functions intact. Reflex intact. Tone WNL. No focal neurological deficit. I left side WNL, persistent normal field of vision. Right-sided limited lateral field of vision, multiple floaters. Ocular, light reflexes WNL. No visible deformity noted.) laboratory and microbiology Laboratory Tests 04/24/24 10:32 Test 04/24/24 10:32 Range/Units Serum Glucose 137 H 74-106 mg/dL Labs and/or images reviewed: Labs reviewed by me, Image(s) reviewed by me Problem List/Assessment/Plan Problem List/Assessment/Plan Hospital Course: A 59-year-old female with a history of hypertension, arrhythmias, and hyperlipidemia presented to the ED with transient vision changes in her right eye, described as a "vertical black string/line." She reported intermittent palpitations over the past few days and is under the care of a case finisher and card seller without a definitive diagnosis. While running errands, she noticed the vision change, which subsided upon arrival at the ED but recurred intermittently while waiting. Her vitals showed a heart rate of 58 and BP of 154/96, with an irregular heart rhythm. Initial tests, including a head CT, CBC, CMP, troponin, and coagulation panel, were unremarkable. During re-evaluation, she experienced episodes of tachycardia and bradycardia but remained asymptomatic. The plan is to admit her for a brain MRI and further evaluation by neurology and cardiology to investigate potential transient brain ischemia due to bradycardia. We are trying to obtain her home medical records. # acute intracranial hemorrhagic stroke ruled out: N/C CT and physical examination unremarkable, no focal neuro deficits noted. # possible TIA: denies previous history of stroke or similar episodes. Transient Focal neurological symptoms. Aspirin 81, atorvastatin 80 mg to continue. Pending CT head and neck angiography, pending MRI, and Neurology consult. Physical therapy consult, to continue. Pending drug screen and urinalysis , TTE/bubble study , keep on telemetry to note for any arrhythmia. Further workup with repeat CBC, CMP, TSH, lipid panel, HbA1c To follow up. # Right eye visual disturbance: No known ocular disease. So far work up unremarkable. ruled out GCA: CRP ESR unremarkable, no claudication or local tenderness, D-dimer unremarkable, on likely intravascular pathology /Clotting disorder. # Known CKD stage II: daily CBC, CMP to continue avoid nephrotoxics # hyperlipidemia: At home Pravastatin 10 mg daily. Check lipid panel in morning, continue atorvastatin # hyperbilirubinemia: no hepatobiliary known disease, physical examination unremarkable, no icterus noted. Asymptomatic. # uncontrolled hypertension: lisinopril 30 mg daily, Lopressor 25 mg b.i.d.. with elevated blood pressure in 150s of systolic: Blood pressure improved. # unknown rhythm disorder: Patient has had intermittent palpitation, repeated workup, event monitoring and cardiology follow up at [facility] did not reveal any underlying disease. # anxiety/possible generalized anxiety disorder: Could be related to the acute health issues. P.r.n. benzodiazepine for now. # constipation: Docusate sodium 100 mg as needed, plenty of fluid # Maxillary molar dental caries: Follow outpatient dentist # vitamin-D deficiency: daily 2000 units tab. #Osteoarthritis: As needed ibuprofen and acetaminophen # Overweight with BMI of 28.5 PCP: Dr. Colbert. Barriers to discharge: Medical workup ongoing. Patient is referred for higher level of care for ophthalmology evaluation of the right eye. Sw and embedded case manager input appreciated. Case discussed with Dr. Dickerson. Code status: Full code. Complex patient care discussion needed total 39 minutes. Plan discussed with: Patient, Other (RN, primary team.) My Orders My Orders Orders - KATALINA BANGURA RESIDENT Procedure Category Date Status Time Atorvastatin (Lipitor) PHA 04/24/24 In Process 13:30 Drug Screen LAB 04/24/24 Logged 13:25 Urinalysis LAB 04/24/24 Logged 13:25 Aspirin Tablet PHA 04/25/24 In Process 10:00 Brain Head Wo Contrast MRI 04/24/24 Logged 13:29 * Neurology Consult CONS 04/24/24 Transmitted 13:29 * Opthalmology CONS 04/24/24 Transmitted Consultatiion * Professor Criminal Justice CONS 04/24/24 Transmitted Consult Coding Comment Comment I saw and evaluated the patient. I reviewed the residents note and agree with findings and plan as documented in the residents note. Refer to my separate note KATALINA BANGURA RESIDENT Apr 24, 2024 19:08 MONIQUE DICKERSON MD Apr 25, 2024 12:49
--- NOTE | 2024-04-24 19:41 | DVHPN2 ---
Assessment/Plan Assessment/Plan 59 F admitted for sudden vision disturbance and palpitation. Patient described to me unilateral vision loss, started with feeling like strands of hair in front of her right eye, no effect of left eye. later turns to floaters and what she described as black reina smoke around her eyes moving with her vision. central vision intact. no weakness, numbness, speech disturbance, no history of slipping or tripping when walking, never visit impregnator helper or financial developer in years. Patient also adamantly request MRI because she has concerns of having a stroke later when she goes home, which persist despite multiple reassurance. also informed me that she previously had carotid US with 70% on R and 50% on left. Total critical care time spent on this patient more than 30 minutes including evaluation, chart review, formulating plan and communication with team, excluding any procedures Alert, oriented x3 PERRLA CN II-XII intact face symmetric, tongue midline clear breath sounds bilaterally S1 S2 RRR no murmur abdomen soft, nontender, no organomegally equal strength bilaterally in upper and lower extremity sensory intact to touch in bilateral upper and lower extremity Confrontation exam with mildly decreased peripheral vision equal left and right compared to valery Visual acuity able to read 1 inch letters from about 5-6 feet, did not do snellen chart direct and indirect pupillary reflex normal b/l no conjunctival injection, grossly clear anterior chamber eye ROM wnl no slit lamp exam done by me lab grossly within acceptable limits CTH clear EKG NSR assessment and plan acute stroke ruled out single eye vision loss rule out VH, retinal detachment ?health related anxiety obtain MRI to r/o other lesion obtain CTA head neck consulted ophthalmology, would not be able to do emergent exam will transfer patient to [place] for emergent ophthal evaluation patient had prior echo, normal per aptient patient was planned to do loop recorder as outpatient by cardio telemetry while inpatient prn clonazepam for anxiety diet regular DVT ppx ambulatory Plan discussed with: Patient Date of Service: Apr 24, 2024 Billing Provider: MONIQUE DICKERSON MD Common Visit Codes: [id number] INP/OBS CARE(HIGH), [id number] CARE 30-74 MIN MONIQUE DICKERSON MD Apr 24, 2024 19:41
[2024-04-24] MEDS ORDERED: ATORVASTATIN 20 MG TAB PO SCH (22:00)
[2024-04-24] MEDS ORDERED: DOCUSATE SOD 100 MG CAP PO PRN (22:15)
[2024-04-25] VITALS (9 sets, daily range): BP systolic 93–137; BP diastolic 53–79; PULSE 51–88; RESP 16–20; TEMP 97.5–98.6; O2SAT 92–98
[2024-04-25 06:40] LABS: Basophils # (auto) 0 10 ^3/uL (0-0.2); Basophils % (auto) 0.4 % (0.0-2.0); Eosinophils # (auto) 0.1 10 ^3/uL (0-0.8); Eosinophils % (auto) 1.6 % (0.0-7.0); Hematocrit 40.1 % (36.0-46.0); Hemoglobin 14.1 g/dL (12.2-16.2); Lymphocytes # (auto) 2.1 10 ^3/uL (0.4-5.4); Lymphocytes % (auto) 32.6 % (10.0-50.0); Mean Corpuscular Hemoglobin 29.4 pg (28.0-32.0); Mean Corpuscular Hgb Conc. 35.2 g/dL (32.0-36.0); Mean Corpuscular Volume 83.6 fL (80.0-100.0); Monocytes # (auto) 0.6 10 ^3/uL (0-1.3); Monocytes % (auto) 8.8 % (0.0-12.0); Neutrophils # (auto) 3.6 10 ^3/uL (1.6-8.6); Neutrophils % (auto) 56.6 % (37.0-80.0); Nucleated Red Blood Cells % 0.2 %; Platelet Count (auto) 174 10^3/uL (140-450); Red Cell Distribution Width 13.9 % (11.8-14.3); White Blood Cell 6.4 10^3/uL (4.4-10.8)
[2024-04-25 06:50] LABS: Alanine Aminotransferase 12 U/L (7-40); Albumin 4.1 g/dL (3.2-4.8); Alkaline Phosphatase 83 U/L (46-116); Anion Gap 8 (5-15); Aspartate Aminotransferase 10 U/L (13-40); BUN/Creatinine Ratio 13.8 (10.0-20.0); Bilirubin, Total 2.6 mg/dL (0.2-1.0); Blood Urea Nitrogen 13 mg/dL (9-23); Carbon Dioxide 25 mmol/L (20-31); Chloride 109 mmol/L (98-107); Cholesterol 191 mg/dL (< 200); Glucose 93 mg/dL (74-106); HDL Cholesterol 47 mg/dL (40-59); LDL Cholesterol 125 mg/dL (< 100); Potassium 3.6 mmol/L (3.5-5.1); Sodium 142 mmol/L (136-145); Total Protein 7.2 g/dL (5.7-8.2); Triglycerides 105 mg/dL (< 150)
--- NOTE | 2024-04-25 09:21 | DVH ---
MRI BRAIN WITHOUT CONTRAST CLINICAL HISTORY: R/O CVA TECHNIQUE: Multiplanar, multisequence MR images of the brain without intravenous contrast. Comparison: CT HEAD WITHOUT CONTRAST on DOS: 04/23/24, HEAD WITHOUT CONTRAST on DOS: 11/21/20 FINDINGS: There is no restricted diffusion. The reina and white matter signal is age appropriate. There is no ev idence of hemorrhage, mass, mass effect or midline shift. There is no hydrocephalus or extra-axial fl uid collection. The visualized intracranial vasculature demonstrates appropriate flow-voids. The sagi ttal midline structures appear unremarkable. The craniocervical junction is within normal limits. The calvarium demonstrates normal marrow signal. The paranasal sinuses and mastoid air cells are clear. IMPRESSION: 1. Unremarkable noncontrast MRI brain. HS:Y
[2024-04-25] MEDS: ASPirin 81 mg TAB PO SCH (09:24)
[2024-04-25] MEDS: clonazePAM 0.5 MG TAB PO PRN (09:24)
[2024-04-25] MEDS: CHOLECALCIFEROL (VITD3) 1,000UNIT=25mCg TAB PO SCH (09:24)
--- NOTE | 2024-04-25 10:01 | DVHSR ---
APPROVED REPORT EXAM: LIMITED Two-dimensional and M-mode echocardiogram with Doppler and color Doppler. Blood Pressure: 113/68 mmHg INDICATION EF and Valvular pathology RISK FACTORS Height: 5' 6", Weight: 176 DIMENSIONS LVDd4.5 (3.8-5.7cm)LA (2D)3.5 (1.9-4.0cm)Aortic Root (2.0-3.7cm) LVDs2.9 (2.5-4.0cm)LA (MM) (1.9-4.0cm)Aortic Cusp Exc (1.5-2.0cm) EF (%) 65.0 (55-70%)Rt. Atrium3.6 (1.9-4.0cm)Asc. Aorta cm IVSd0.9 (0.7-1.1cm)RV (D) (1.8-2.4cm) PWd1.0 (0.7-1.1cm) Mitral Valve MitralMitral Stenosis E wave0.70m/sMV Mean GR.mmHg A wave0.90m/sMV Peak GR.mmHg E/A ratio0.82D MVAcm2 Aortic Valve Aortic ValveAortic Stenosis V11.00m/Francis Mean GR.4mmHg V21.40m/Francis Peak GR.8mmHg Other Information Quality : Technically LimitedRhythm : Technically limited study due to body habitus, pt moving during test. Conclusion Normal left ventricular size and dimension. Normal left ventricular systolic function with estimated ejection fraction of 55%. There is a grade1 diastolic dysfunction. Normal right ventricular size and dimension. Normal right ventricular systolic function. Normal biatrial size and dimension. Normal aortic valve structure and function. Normal mitral valve structure and function Normal tricuspid valve structure and function. The pulmonary valve is grossly normal. . No pericardial effusion.
--- NOTE | 2024-04-25 12:36 | DVHPNRES ---
Progress Note Date Seen: Apr 25, 2024 Resident Creating Document: MARIANA ANN RESIDENT Has the PT tested + for MRSA If YES, has PT been informed?: No Medical Necessity Reason Pt with a Central, PICC or Fol: No Subjective Review of Systems A 59-year-old female with a history of hypertension, arrhythmias, and hyperlipidemia presented to the ED with transient vision changes in her right eye, described as a "vertical black string/line." She reported intermittent palpitations over the past few days and is under the care of a consumer marketing specialist and html developer without a definitive diagnosis. While running errands, she noticed the vision change, which subsided upon arrival at the ED but recurred intermittently while waiting. Her vitals showed a heart rate of 58 and BP of 154/96, with an irregular heart rhythm. Initial tests, including a head CT, CBC, CMP, troponin, and coagulation panel, were unremarkable. During re-evaluation, she experienced episodes of tachycardia and bradycardia but remained asymptomatic. The plan is to admit her for a brain MRI and further evaluation by neurology and cardiology to investigate potential transient brain ischemia due to bradycardia. We are trying to obtain her home medical records. Patient reports improved vision this morning, is able to read signage on the wall. Reports mild floaters. Review of Systems: HEENT:Abnormal (Mild tension-like headache), CVS:Abnormal (Intermittent palpitation, denies any known history of AFib), RESPIRATORY:Normal, GI:Normal, :Normal, MSK:Normal, NEURO:Abnormal (Right eye visual disturbances) Objective vital signs Vital Sign Date Time Temp Pulse Resp B/P (MAP) Pulse Ox O2 Delivery O2 Flow Rate FiO2 04/25/24 09:00 97.5 62 20 137/71 (93) 98 97.5 04/25/24 08:28 Room Air* 0 21 Total Intake and Output 04/24/24 04/24/24 04/25/24 15:00 23:00 07:00 Intake Total 250 ml Output Total 400 ml Balance -150 ml medications Current Medications Medications Dose Ordered Sig/Ekta Route Start Time Stop Time Status Last Admin Dose Admin Sodium Chloride 10 ml Q8HR IV 04/24/24 06:00 04/25/24 06:00 10 ML Atorvastatin Calcium 80 mg HS PO 04/24/24 13:30 04/24/24 23:04 80 MG Aspirin 81 mg DAILY PO 04/25/24 10:00 04/25/24 09:24 81 MG Clonazepam 0.25 mg Q12HP PRN PO 04/24/24 19:30 04/25/24 09:24 0.25 MG Cholecalciferol 2,000 unit DAILY PO 04/25/24 10:00 04/25/24 09:24 2,000 UNIT Docusate Sodium 100 mg BIDPRN PRN PO 04/24/24 22:15 Examination GENERAL:Abnormal (In mild distress, anxious), HEENT:Normal, NECK:Normal, LUNGS:Normal, CVS:Normal, ABDOMEN:Normal, MSK:Normal, SKIN:Normal, NEURO:Abnormal (AAO x4, memory intact, overall gross strength 5/5 upper and lower extremity, sensory functions intact. Reflex intact. Tone WNL. No focal neurological deficit. I left side WNL, persistent normal field of vision. Right-sided limited lateral field of vision, multiple floaters. Ocular, light reflexes WNL. No visible deformity noted.) laboratory and microbiology Laboratory Tests 04/25/24 05:23 Test 04/25/24 05:23 Range/Units Serum Glucose 93 74-106 mg/dL Labs and/or images reviewed: Labs reviewed by me, Image(s) reviewed by me Problem List/Assessment/Plan Problem List/Assessment/Plan # acute intracranial hemorrhagic stroke ruled out: N/C CT and physical examination unremarkable, no focal neuro deficits noted. # possible TIA: denies previous history of stroke or similar episodes. Transient Focal neurological symptoms. Aspirin 81, atorvastatin 80 mg to continue. Pending CT head and neck angiography, and Neurology consult. Physical therapy consult, to continue. Pending drug screen and urinalysis , TTE/bubble study , keep on telemetry to note for any arrhythmia. Further workup with repeat CBC, CMP, TSH, lipid panel, HbA1c To follow up. - MRI: Unremarkable noncontrast MRI brain. # Right eye visual disturbance: No known ocular disease. So far work up unremarkable. ruled out GCA: CRP ESR unremarkable, no claudication or local tenderness, D-dimer unremarkable, on likely intravascular pathology /Clotting disorder. Awaiting ophthalmology eval # Known CKD stage II: daily CBC, CMP to continue avoid nephrotoxics # hyperlipidemia: At home Pravastatin 10 mg daily. Check lipid panel in morning, continue atorvastatin # hyperbilirubinemia: no hepatobiliary known disease, physical examination unremarkable, no icterus noted. Asymptomatic. # uncontrolled hypertension: lisinopril 30 mg daily, Lopressor 25 mg b.i.d.. with elevated blood pressure in 150s of systolic: Blood pressure improved. # unknown rhythm disorder: Patient has had intermittent palpitation, repeated workup, event monitoring and cardiology follow up at [facility] did not reveal any underlying disease. # anxiety/possible generalized anxiety disorder: Could be related to the acute health issues. P.r.n. benzodiazepine for now. # constipation: Docusate sodium 100 mg as needed, plenty of fluid # Maxillary molar dental caries: Follow outpatient dentist # vitamin-D deficiency: daily 2000 units tab. #Osteoarthritis: As needed ibuprofen and acetaminophen # Overweight with BMI of 28.5 PCP: Dr. Colbert. Barriers to discharge: Medical workup ongoing. Patient is referred for higher level of care for ophthalmology evaluation of the right eye. Sw and machine adjuster leader case trim input appreciated. Plan discussed with Dr. Lowe. Plan discussed with: Patient, Other (RN) Date of Service: Apr 25, 2024 Billing Provider: MONIQUE LOWE MD Common Visit Codes: [id number] INP/OBS CARE(HIGH) Coding Comment Comment 59 F admitted for sudden vision disturbance and palpitation. Patient described to me unilateral vision loss, started with feeling like strands of hair in front of her right eye, no effect of left eye. later turns to floaters and what she described as black reina smoke around her eyes moving with her vision. central vision intact. no weakness, numbness, speech disturbance, no history of slipping or tripping when walking, never visit cane flume feeding machine operator or securities vault supervisor in years. Patient also adamantly request MRI because she has concerns of having a stroke later when she goes home, which persist despite multiple reassurance. also informed me that she previously had carotid US with 70% on R and 50% on left. assessment and plan acute stroke ruled out single eye vision loss rule out VH, retinal detachment ?health related anxiety MRI clean CTA head and neck without significant stenosis Pending ophthalmology clearance today versus [facility] transfer will transfer patient to [place] for emergent ophthal evaluation patient had prior echo, normal per patient patient was planned to do loop recorder as outpatient by cardio telemetry without events prn clonazepam for anxiety diet regular DVT ppx ambulatory MARIANA ANN Apr 25, 2024 12:36 MONIQUE LOWE MD Apr 25, 2024 12:51
[2024-04-25 12:42] LABS: Urine Bacteria None Seen /hpf (None Seen)
[2024-04-25 12:58] LABS: Urine Blood Negative /uL (Negative); Urine Clarity Clear (Clear); Urine Color Yellow (Yellow); Urine Mucus FEW (None Seen); Urine Protein, UAD TRACE (Negative); Urine Specific Gravity 1.032 (1.001-1.035); Urine Urobilinogen Normal (Negative); Urine WBC <1 /hpf (0 - 5)
[2024-04-25 13:28] LABS: Amphetamine Screen, Urine Neg (NEGATIVE); Benzodiazephine Screen, Urine Neg (NEGATIVE)
[2024-04-25 13:29] LABS: Barbiturate Scree,Urine Neg (NEGATIVE); Cannabinoid Screen, Urine Neg (NEGATIVE); Cocaine Screen, Urine Neg (NEGATIVE); Opiate Scree,Urine Neg (NEGATIVE); Phencyclidine Screen, Urine Neg (NEGATIVE)
[2024-04-25] MEDS ORDERED: ACETAMINOPHEN 325 MG TAB PO PRN (21:30)
[2024-04-26 01:00] VITALS: BP 98/56; PULSE 52; RESP 18; TEMP 97.9; O2SAT 95
[2024-04-26 05:00] VITALS: BP 101/68; PULSE 64; RESP 17; TEMP 98.5; O2SAT 93
[2024-04-26 09:00] VITALS: BP 108/72; PULSE 100; RESP 18; TEMP 97.9; O2SAT 99
[2024-04-26] MEDS ORDERED: ATOR-47 PO (10:38)
--- NOTE | 2024-04-26 11:04 | ECG ---
[facility] Test Date: 2024-04-23 Test Time: 15:40:18 Pat Name: NIRMAL PA Department: ER Room: 0238T A Gender: F Cardiovascular Operating Room Nurse: ARISTIDES : 1965 Requested By: KIANA GORE Order Number: [id number] Reading MD: Jorje Omer Measurements Intervals [place] Rate: 58 P: 39 SC: 188 QRS: 11 QRSD: 108 T: 41 QT: 403 QTc: 396 Interpretive Statements Sinus rhythm Consider left atrial enlargement Borderline T abnormalities, anterior leads Electronically Signed On 05-05-2024 12:34:50 PST by Jorje Omer Please click the below link to view image of tracing.
--- NOTE | 2024-04-26 11:39 | DVHDSRES ---
Discharge Summary Date of Admission Resident Creating Document: MARIANA ANN RESIDENT Apr 23, 2024 at 23:17 Date of Discharge: Apr 26, 2024 Labs/Diagnostic Data: Laboratory Results Test 04/25/24 12:33 04/25/24 05:23 04/24/24 14:34 04/23/24 15:48 Urine Color Yellow (Yellow) Urine Clarity Clear (Clear) Urine pH 7.0 (5.0-9.0) Urine Specific [place] 1.032 (1.001-1.035) Urine Protein Trace (Negative) Urine Ketones Negative (Negative) Urine Blood Negative /uL (Negative) Urine Nitrite Negative (Negative) Urine Bilirubin Negative (Negative) Urine Urobilinogen Normal mg/dL (Negative) Urine Leukocyte Esterase Negative /uL (Negative) Urine RBC 3 /hpf (0 - 4) Urine WBC <1 /hpf (0 - 5) Urine Squamous Epithelial Cells Few /hpf (<5) Urine Bacteria None seen /hpf (None Seen) Urine Mucus Few (None Seen) Urine Glucose Normal mg/dL (Normal) Urine Opiates Screen Neg (NEGATIVE) Urine Fentanyl Screen Neg (NEGATIVE) Urine Barbiturates Screen Neg (NEGATIVE) Urine Phencyclidine Screen Neg (NEGATIVE) Urine Amphetamines Screen Neg (NEGATIVE) Urine Benzodiazepines Screen Neg (NEGATIVE) Urine Cocaine Screen Neg (NEGATIVE) Urine Cannabinoids Screen Neg (NEGATIVE) White Blood Count 6.4 10^3/uL (4.4-10.8) Red Blood Count 4.80 10^6/uL (4.0-5.20) Hemoglobin 14.1 g/dL (12.2-16.2) Hematocrit 40.1 % (36.0-46.0) Mean Corpuscular Volume 83.6 fL (80.0-100.0) Mean Corpuscular Hemoglobin 29.4 pg (28.0-32.0) Mean Corpuscular Hemoglobin Concent 35.2 g/dL (32.0-36.0) Red Cell Distribution Width 13.9 % (11.8-14.3) Platelet Count 174 10^3/uL (140-450) Mean Platelet Volume 9.0 fL (6.9-10.8) Neutrophils (%) (Auto) 56.6 % (37.0-80.0) Lymphocytes (%) (Auto) 32.6 % (10.0-50.0) Monocytes (%) (Auto) 8.8 % (0.0-12.0) Eosinophils (%) (Auto) 1.6 % (0.0-7.0) Basophils (%) (Auto) 0.4 % (0.0-2.0) Neutrophils # (Auto) 3.6 10 ^3/uL (1.6-8.6) Lymphocytes # (Auto) 2.1 10 ^3/uL (0.4-5.4) Monocytes # (Auto) 0.6 10 ^3/uL (0-1.3) Eosinophils # (Auto) 0.1 10 ^3/uL (0-0.8) Basophils # (Auto) 0 10 ^3/uL (0-0.2) Nucleated Red Blood Cells 0.2 % Sodium Level 142 mmol/L (136-145) Potassium Level 3.6 mmol/L (3.5-5.1) Chloride Level 109 mmol/L (98-107) Carbon Dioxide Level 25 mmol/L (20-31) Anion Gap 8 (5-15) Blood Urea Nitrogen 13 mg/dL (9-23) Creatinine 0.94 mg/dL (0.550-1.02) Glomerular Filtration Rate Calc 69 mL/min (>90) BUN/Creatinine Ratio 13.8 (10.0-20.0) Serum Glucose 93 mg/dL (74-106) Hemoglobin A1c 5.1 % A1C (<5.7) Calcium Level 10.0 mg/dL (8.7-10.4) Total Bilirubin 2.6 mg/dL (0.2-1.0) Aspartate Amino Transferase (AST) 10 U/L (13-40) Alanine Aminotransferase (ALT) 12 U/L (7-40) Alkaline Phosphatase 83 U/L (46-116) Total Protein 7.2 g/dL (5.7-8.2) Albumin 4.1 g/dL (3.2-4.8) Triglycerides Level 105 mg/dL (< 150) Cholesterol Level 191 mg/dL (< 200) LDL Cholesterol 125 mg/dL (< 100) HDL Cholesterol 47 mg/dL (40-59) Thyroid Stimulating Hormone (TSH) 1.51 uIU/mL (0.55-4.78) Erythrocyte Sedimentation Rate 17 mm/hr (0-20) D-Dimer, Quantitative 0.23 mg/L FEU (0.0-0.49) Direct Bilirubin 0.5 mg/dL (<0.3) C-Reactive Protein High Sensitivity 0.91 mg/dL (<1.0) Prothrombin Time 10.9 sec (9.3-11.8) Prothrombin Time INR 1.03 (0.9-1.15) Activated Partial Thromboplast Time 27.9 SEC (24.5-34.5) Troponin I High Sensitivity < 3 ng/L (</=34) Other Laboratory Tests 04/25/24 05:23 Brief Hx & Hospital Course: A 59-year-old female with a history of hypertension, arrhythmias, and hyperlipidemia presented to the ED with transient vision changes in her right eye, described as a "vertical black string/line." She reported intermittent palpitations over the past few days and is under the care of a grain origination specialist and rubber compounder formulator without a definitive diagnosis. While running errands, she noticed the vision change, which subsided upon arrival at the ED but recurred intermittently while waiting. Her vitals showed a heart rate of 58 and BP of 154/96, with an irregular heart rhythm. Initial tests, including a head CT, CBC, CMP, troponin, and coagulation panel, were unremarkable. During re-evaluation, she experienced episodes of tachycardia and bradycardia but remained asymptomatic. The plan is to admit her for a brain MRI and further evaluation by neurology and cardiology to investigate potential transient brain ischemia due to bradycardia. We are trying to obtain her home medical records. Hospital course: Head CT showed no acute intracranial abnormality. CT angiography of the head and neck was subsequently completed which showed widely patent arteries in the head and neck without large vessel occlusion, significant stenosis, dissection, aneurysm or AVM. Dental ammy within the 1st right maxillary molar. No acute intracranial abnormality. Brain MRI showed unremarkable noncontrast MRI brain. Unlikely TIA, stroke ruled out. However, can not rule out ischemic optic neuropathy. Vitreal hemorrhage and retinal detachment. Unlikely CRA0 as patient's central vision is not affected. Floaters likely from hypertensive retinopathy. Ophthalmology was consulted, they recommended discharging the patient and having her visit the clinic right after discharge. On the day of discharge, patient appeared well had stable vital signs and improving vision, however, still experienced minimal floaters in her right eye. Patient was instructed to go directly to the furniture mover clinic, she demonstrated understanding. Patient was also instructed to follow up with her PCP at her earliest convenience. She was prescribed atorvastatin 80 mg p.o. daily and instructed to hold aspirin until further evaluation of her eyes completed. Her hospital course was uncomplicated. All her questions were answered and all the concerns were addressed. GENERAL:Abnormal (In mild distress, anxious), HEENT:Normal, NECK:Normal, LUNGS:Normal, CVS:Normal, ABDOMEN:Normal, MSK:Normal, SKIN:Normal, NEURO:Abnormal (AAO x4, memory intact, overall gross strength 5/5 upper and lower extremity, sensory functions intact. Reflex intact. Tone WNL. No focal neurological deficit. I left side WNL, persistent normal field of vision. Right-sided limited lateral field of vision, multiple floaters. Ocular, light reflexes WNL. No visible deformity noted.) Operations or Procedures EXAM: CT HEAD WITHOUT CONTRAST INDICATION: visual disturbance TECHNIQUE: CT of the head without intravenous contrast. Radiation Dose Information: CT Dose: CTDI volume is 25 mGy. Dose-length product is 259 mGy*cm The dose indicators for CT are the volume Computed Tomography (CT) Dose Index (CTDIvol) and the Dose Length Product (DLP), and are measured in units of mGy and mGy-cm, respectively. These indicators are not patient dose, but values generated from the CT scanner acquisition factors. The report includes radiation exposure data for exposures received during this examination. COMPARISON: HEAD WITHOUT CONTRAST on DOS: 11/21/20 FINDINGS: There is no evidence of acute intracranial hemorrhage, extra-axial collection, mass effect, midline shift, herniation or hydrocephalus. The ventricles, sulci and cisterns are age appropriate. The reina-white differentiation is intact. Patchy periventricular and subcortical white matter hypoattenuation is nonspecific but may be related to small vessel ischemic disease. The visualized paranasal sinuses and mastoid air cells are clear. The surrounding soft tissues and osseous structures are unremarkable. IMPRESSION: No acute intracranial abnormality. : CT ANGIO HEAD/NECK CLINICAL HISTORY: SUDDEN LOSS OF VISION TECHNIQUE: CT angiogram of the head and neck was performed without and with intravenous contrast. 100 ml of omnipaque 350 was administered intravenously. 3D MIP reconstructed images were created and archived on the PACS system. This exam was performed according to our departmental dose optimization program. Up-to-date CT equipment and radiation dose reduction techniques are utilized as appropriate. COMPARISON: CT head from 04/23/2020 FINDINGS: CTA head: The ventricles and subarachnoid spaces are normal in size and configuration. The reina white matter interfaces are maintained There is no midline shift or mass effect. There is no evidence of acute intracranial hemorrhage. The basal cisterns are patent. The calvarium is intact. The distal internal carotid, vertebral, and basilar arteries are patent without focal narrowing or occlusion. The anterior, middle, and posterior cerebral arteries are patent without focal narrowing. No aneurysm or arteriovenous malformation is identified. CTA neck: Common origin of the left common carotid and right brachiocephalic arteries , normal variant. The aortic arch vessel origins are widely patent. Mild calcified plaque in the right carotid bifurcation . The common carotid and cervical portions of the internal carotid and vertebral arteries are patent without focal narrowing according to NASCET criteria. No aneurysm, AVM, or dissection is identified. The cervical soft tissues are unremarkable. The paranasal sinus and mastoid air cells are clear. Mild biapical pleural-parenchymal scarring. Multilevel cervical spondylosis. There is a dental ammy within the 1st right maxillary molar. IMPRESSION: 1. Widely patent arteries in the head and neck without large vessel occlusion, significant stenosis, dissection, aneurysm, or AVM. 2. Dental ammy within the 1st right maxillary molar. 3. No acute intracranial abnormality. BRAIN WITHOUT CONTRAST CLINICAL HISTORY: R/O CVA TECHNIQUE: Multiplanar, multisequence MR images of the brain without intravenous contrast. Comparison: CT HEAD WITHOUT CONTRAST on DOS: 04/23/24, HEAD WITHOUT CONTRAST on DOS: 11/21/20 FINDINGS: There is no restricted diffusion. The reina and white matter signal is age appropriate. There is no evidence of hemorrhage, mass, mass effect or midline shift. There is no hydrocephalus or extra-axial fluid collection. The visualized intracranial vasculature demonstrates appropriate flow-voids. The sagittal midline structures appear unremarkable. The craniocervical junction is within normal limits. The calvarium demonstrates normal marrow signal. The paranasal sinuses and mastoid air cells are clear. IMPRESSION: 1. Unremarkable noncontrast MRI brain. EXAM: LIMITED Two-dimensional and M-mode echocardiogram with Doppler and color Doppler. Blood Pressure: 113/68 mmHg INDICATION EF and Valvular pathology RISK FACTORS Height: 5' 6", Weight: 176 DIMENSIONS LVDd 4.5 (3.8-5.7cm) LA (2D) 3.5 (1.9-4.0cm) Aortic Root (2.0- 3.7cm) LVDs 2.9 (2.5-4.0cm) LA (MM) (1.9-4.0cm) Aortic Cusp Exc (1.5- 2.0cm) EF (%) 65.0 (55-70%) Rt. Atrium 3.6 (1.9-4.0cm) Asc. Aorta cm IVSd 0.9 (0.7-1.1cm) RV (D) (1.8-2.4cm) PWd 1.0 (0.7-1.1cm) Mitral Valve Mitral Mitral Stenosis E wave 0.70m/s MV Mean GR. mmHg A wave 0.90m/s MV Peak GR. mmHg E/A ratio 0.8 2D MVA cm2 Aortic Valve Aortic Valve Aortic Stenosis V1 1.00m/s AO Mean GR. 4mmHg V2 1.40m/s AO Peak GR. 8mmHg Other Information Quality : Technically Limited Rhythm : Technically limited study due to body habitus, pt moving during test. Conclusion Normal left ventricular size and dimension. Normal left ventricular systolic function with estimated ejection fraction of 55%. There is a grade1 diastolic dysfunction. Normal right ventricular size and dimension. Normal right ventricular systolic function. Normal biatrial size and dimension. Normal aortic valve structure and function. Normal mitral valve structure and function Normal tricuspid valve structure and function. The pulmonary valve is grossly normal. . No pericardial effusion Condition at Discharge: Good Final Diagnosis/Problems List acute intracranial hemorrhagic stroke ruled out: Possible TIA Right eye visual disturbance Known CKD stage 2 Hyperlipidemia Hyperbilirubinemia Uncontrolled hypertension Unknown rhythm disorder Anxiety/possible generalized anxiety disorder Constipation Maxillary molar dental caries Vitamin-D deficiency Osteoarthritis Discharge Disposition: Home Discharge Instruct/Medications Diet: Cardiac 2g Na,low cholest Activity: No Restrictions, As Tolerated Follow Up/Referral: Please follow up with Ophthalmology in the outpatient clinic at your earliest Please follow up with PCP in 1-2 weeks Medications: Atorvastatin 80 mg p.o. daily Discharge Statement: "Patient was advised to return to the ER or call 911 if any headaches, dizziness, shortness of breath, chest pain, abdominal pain, bleeding, fevers, or worsening of medical condition. Patient was counseled about treatment plan, medications, possible side effects, patientverbalized understanding. All questions were answered to the best of my ability. This discharge took greater then 30 minutes in planning, reviewing documentation, counseling the patient, and discussing with other team members." ASSESSMENT ASSESSMENT Assessment acute intracranial hemorrhagic stroke ruled out: Possible TIA Right eye visual disturbance Known CKD stage 2 Hyperlipidemia Hyperbilirubinemia Uncontrolled hypertension Unknown rhythm disorder Anxiety/possible generalized anxiety disorder Constipation Maxillary molar dental caries Vitamin-D deficiency Osteoarthritis Date of Service: Apr 26, 2024 Billing Provider: MONIQUE DICKERSON MD Common Visit Codes: 54888-HXQ/OBS DISCH DAY >30min Coding Comment Comment I saw and evaluated the patient. I reviewed the residents note and agree with findings and plan as documented in the residents note. Assessment Acute stroke ruled out, unlikely TIA single eye visual disturbance Consult with Ophthalmology, discussed with furniture mover to do proper examination, patient to be discharged on sent to his clinic. However when discussing with the patient, she prefers to go to [facility] for further workup. Risks and benefits of immediate clinic visit without appointment to furniture mover discussed, patient still prefer to go to [facility]. Patient understood risk MARIANA ANN Apr 26, 2024 11:39 MONIQUE DICKERSON MD Apr 26, 2024 20:50
== END 2024-04-26 10:37 | disposition home or self-care (01) | DRG 82 ==
LOC: ER 15:33 → TELE 23:17 → TELE-EAST 23:19
PROVIDERS: ADMIT Student in an Organized Health Care Education/Training Program; ATTEND Internal Medicine
DX: H43.11 Vitreous hemorrhage, right eye (principal); G45.9 Transient cerebral ischemic attack, unspecified; H47.011 Ischemic optic neuropathy, right eye; E55.9 Vitamin D deficiency, unspecified; E66.3 Overweight; E78.5 Hyperlipidemia, unspecified; F41.9 Anxiety disorder, unspecified; H53.9 Unspecified visual disturbance; M19.90 Unspecified osteoarthritis, unspecified site; H54.60 Unqualified visual loss, one eye, unspecified; N18.2 Chronic kidney disease, stage 2 (mild); I12.9 Hypertensive chronic kidney disease with stage 1 through stage 4 chronic kidney disease, or unspecified chronic kidney disease; K59.00 Constipation, unspecified; E80.6 Other disorders of bilirubin metabolism; K02.9 Dental caries, unspecified; Z68.28 Body mass index [BMI] 28.0-28.9, adult; H33.21 Serous retinal detachment, right eye; I16.0 Hypertensive urgency
CPT/HCPCS: 36415; 70450; 70496; 70551; 80053; 80061; 80307; 81001; 82248; 83036; 84443; 84484; 85025; 85379; 85610; 85652; 85730; 86141; 93005; 93306; 94660; G0378